=== PATIENT | male | born 2000 | race Caucasian/White ===

== ENCOUNTER 2023-05-04 06:23 | Inpatient (IN) | payer MEDICAID ==
[~2023-05-04] VITALS: Ht 175.3 cm; Wt 88.5 kg
[2023-05-04] MEDS ORDERED: LORazepam 1 MG TABLET PO ONE (09:45)
[2023-05-04 09:54] LABS: COVID AG,FIA SOURCE NASAL SWAB
[2023-05-04 09:54] LABS: ALCOHOL, URINE DRUG SCREEN POSITIVE (NEGATIVE); AMPHET/METH SCREEN,URINE NEGATIVE (NEGATIVE); BARBITURATE SCREEN, URINE NEGATIVE (NEGATIVE); BENZODIAZEPINES SCREEN,URINE NEGATIVE (NEGATIVE); CANNABINOID SCREEN,URINE NEGATIVE (NEGATIVE); COCAINE SCREEN,URINE NEGATIVE (NEGATIVE); METHADONE SCREEN, URINE NEGATIVE (NEGATIVE); OPIATE SCREEN,URINE NEGATIVE (NEGATIVE); PHENCYCLIDINE SCREEN,URINE NEGATIVE (NEGATIVE)
[2023-05-04 09:58] LABS: BASOPHILS % (AUTO) 0.5 % (0.0-2.0); EOSINOPHILS % (AUTO) 2.3 % (1.0-6.0); HEMATOCRIT 47.3 % (41-53); HEMOGLOBIN 16.3 g/dL (13.5-17.5); LYMPHOCYTES # (AUTO) 3.3 K/uL (1.0-4.8); LYMPHOCYTES % (AUTO) 28.9 % (22.0-44.0); MEAN CORPUSCULAR HGB CONC 34.5 G/dL (31.0-37.0); MEAN CORPUSCULAR VOLUME 90 fL (80-100); MONOCYTES # (AUTO) 0.9 K/uL (0.1-1.0); MONOCYTES % (AUTO) 7.6 % (2.0-9.0); NEUTROPHILS # (AUTO) 6.9 K/uL (1.8-7.7); NEUTROPHILS % (AUTO) 60.7 % (40.0-70.0); PLATELET COUNT (AUTO) 240 K/uL (150-450); RED BLOOD CELL COUNT(AUTO) 5.26 MIL/uL (4.50-5.90); RED CELL DISTRIBUTION WIDTH 12.8 % (11.5-14.5); WHITE BLOOD COUNT (AUTO) 11.3 K/uL (4.5-11.0)
[2023-05-04 10:04] LABS: ANION GAP 10 mmol/L (8-16); CALCIUM, TOTAL 8.8 mg/dL (8.8-10.5); CARBON DIOXIDE 25 mmol/L (22-29); CHLORIDE 106 mmol/L (98-107); CREATININE 0.81 mg/dL (0.60-1.30); GLOMERULAR FILTR. RATE CALC > 60 mL/min (>60); GLUCOSE,RANDOM 100 mg/dL (70-110); POTASSIUM 4.3 mmol/L (3.5-5.1); SODIUM SERUM 141 mmol/L (136-145); UREA NITROGEN, BLOOD 10 mg/dL (7-18)
[2023-05-04 10:12] LABS: ALANINE AMINOTRANSFERASE 22 U/L (12-78); ALBUMIN 3.8 g/dL (3.4-5.0); ALKALINE PHOSPHATASE 102 U/L (46-116); ASPARTATE AMINOTRANSFERASE 10 U/L (15-37); BILIRUBIN,TOTAL 0.6 mg/dL (0.1-1.0); TOTAL PROTEIN, SERUM 7.3 g/dL (6.4-8.2)
[2023-05-04 10:13] LABS: ALCOHOL, BLOOD (SERUM) 113 mg/dL (0-10)
[2023-05-04 10:14] LABS: SARS-COV2 (COVID) ANTIGEN,FIA Negative (Negative)
[2023-05-04] MEDS ORDERED: HALOPERIDOL 5 MG TABLET PO PRN (11:00)
[2023-05-04] MEDS ORDERED: LORazepam 2 MG TABLET PO PRN (11:00)
[2023-05-04] MEDS ORDERED: NICOTINE 7 MG/24 HOUR PATCH TD ONE (19:00)
[2023-05-04] MEDS ORDERED: NICOTINE 14 MG/24 HOUR PATCH TD ONE (19:00)
[2023-05-05] MEDS: ZOLPIDEM TARTRATE 10 MG TABLET PO PRN ×2 (00:06→20:34)
[2023-05-05 04:05] VITALS: BP 121/52; PULSE 80; RESP 18; TEMP 98; O2SAT 99
[2023-05-05 08:06] LABS: BAND NEUTROPHILS % (MANUAL) 0 % (0-5)
[2023-05-05 08:16] LABS: HEMATOCRIT 42.2 % (41-53); HEMOGLOBIN 14.7 g/dL (13.5-17.5); MEAN CORPUSCULAR HEMOGLOBIN 31.4 pg (26.0-34.0); MEAN CORPUSCULAR VOLUME 90 fL (80-100); PLATELET COUNT (AUTO) 223 K/uL (150-450); RED BLOOD CELL COUNT(AUTO) 4.69 MIL/uL (4.50-5.90); RED CELL DISTRIBUTION WIDTH 12.9 % (11.5-14.5); WHITE BLOOD COUNT (AUTO) 11.7 K/uL (4.5-11.0)
[2023-05-05 09:11] LABS: ALANINE AMINOTRANSFERASE 19 U/L (12-78); ALBUMIN 3.1 g/dL (3.4-5.0); ALKALINE PHOSPHATASE 89 U/L (46-116); ANION GAP 10 mmol/L (8-16); ASPARTATE AMINOTRANSFERASE 11 U/L (15-37); CALCIUM, TOTAL 8.7 mg/dL (8.8-10.5); CARBON DIOXIDE 25 mmol/L (22-29); CHLORIDE 105 mmol/L (98-107); CHOL/HDL RATIO 2.5 (4.2-7.3); CHOLESTEROL 101 mg/dL (131-200); CREATININE 0.86 mg/dL (0.60-1.30); FREE T4 (FREE THYROXINE) 1.03 ng/dL (0.76-1.46); GLOMERULAR FILTR. RATE CALC > 60 mL/min (>60); GLUCOSE,RANDOM 90 mg/dL (70-110); HDL CHOLESTEROL 41 mg/dL (40-60); LDL CHOL (CALC.) 39 mg/dL (0-130); SODIUM SERUM 140 mmol/L (136-145); THYROID STIMULATING HORMONE 1.44 uIU/mL (0.36-3.74); TRIGLYCERIDES 106 mg/dL (15-150); UREA NITROGEN, BLOOD 15 mg/dL (7-18)
[2023-05-05 09:22] LABS: HEMOGLOBIN A1C 4.9 % (3.8-5.6)
[2023-05-05 09:37] LABS: EOSINOPHILS % (MANUAL) 2 % (1-6); LYMPHOCYTES % (MANUAL) 28 % (22-44); MONOCYTES % (MANUAL) 7 % (2-9); SEGMENTED NEUTROPHILS % 63 % (40-70); TOTAL CELLS COUNTED 100
[2023-05-05 09:38] LABS: RBC MORPHOLOGY COMMENT NORMAL RBC MORPH
[2023-05-05 10:36] VITALS: BP 107/60; PULSE 84; RESP 17; TEMP 98.7; O2SAT 99
[2023-05-05] MEDS ORDERED: NICOTINE 14 MG/24 HOUR PATCH TD SCH (12:15)
[2023-05-05] MEDS: DIVALPROEX SODIUM 500 MG DR TABLET PO SCH (17:04)
[2023-05-05 20:26] VITALS: BP 119/73; PULSE 97; RESP 18; TEMP 98.1; O2SAT 98
[2023-05-05] MEDS ORDERED: OMEPRAZOLE 20 MG CAPSULE PO PRN (22:00)
[2023-05-05] MEDS ORDERED: PETROLATUM,WHITE 28 GM JELLY TP PRN (22:00)
[2023-05-05] MEDS ORDERED: MAGNESIUM HYDROXIDE SUSPENSION 30 ML UDCUP PO PRN (22:00)
[2023-05-05] MEDS ORDERED: IBUPROFEN 600 MG TABLET PO PRN (22:00)
[2023-05-05] MEDS ORDERED: BENZOCAINE/MENTHOL LOZENGE PO PRN (22:00)
[2023-05-05] MEDS ORDERED: MAG HYDROX/AL HYDROX/SIMETH ES 30 ML SUSPENSION UDCUP PO PRN (22:00)
[2023-05-05] MEDS ORDERED: ALBUTEROL SULFATE HFA 90 MCG/PUFF 8 GM INHALER IH PRN (22:00)
[2023-05-05] MEDS ORDERED: ACETAMINOPHEN 325 MG TABLET PO PRN (22:00)
[2023-05-05] MEDS ORDERED: CloNIDine HCL 0.1 MG TABLET PO PRN (22:00)
[2023-05-05] MEDS ORDERED: DOCUSATE SODIUM 100 MG CAPSULE PO PRN (22:00)
[2023-05-05] MEDS ORDERED: ONDANSETRON HCL 4 MG TABLET PO PRN (22:00)
[2023-05-05] MEDS ORDERED: BACITRACIN 28 GM OINTMENT TP PRN (22:00)
[2023-05-05] MEDS ORDERED: LOPERAMIDE HCL 2 MG CAPSULE PO PRN (22:00)
[2023-05-06] MEDS: NICOTINE 21 MG/24 HOUR PATCH TD SCH (08:36)
[2023-05-06] MEDS: DIVALPROEX SODIUM 500 MG DR TABLET PO SCH ×2 (08:36→16:08)
[2023-05-06 08:37] VITALS: BP 120/73; PULSE 88; RESP 17; TEMP 97.8; O2SAT 99
[2023-05-06 20:21] VITALS: BP 129/78; PULSE 79; RESP 18; TEMP 97.8
[2023-05-07 08:22] VITALS: BP 117/65; PULSE 76; RESP 16; TEMP 97.7; O2SAT 97
[2023-05-07] MEDS: NICOTINE 21 MG/24 HOUR PATCH TD SCH (08:53)
[2023-05-07] MEDS: DIVALPROEX SODIUM 500 MG DR TABLET PO SCH (08:53)
[2023-05-07] MEDS ORDERED: DIVA-112 PO (10:00)
== END 2023-05-07 11:15 | disposition home or self-care (01) | DRG 753 ==
LOC: EMS 06:27 → B2S 05-05 00:48
PROVIDERS: ADMIT Psychiatry & Neurology Psychiatry; ATTEND Psychiatry & Neurology Psychiatry
DX: F31.9 Bipolar disorder, unspecified (principal); R45.851 Suicidal ideations; Z20.822 Contact with and (suspected) exposure to COVID-19; F10.129 Alcohol abuse with intoxication, unspecified; F41.9 Anxiety disorder, unspecified; G47.00 Insomnia, unspecified; Z72.0 Tobacco use
CPT/HCPCS: 80053; 80061; 80307; 83036; 84439; 84443; 85007; 85025; 85027; 99285; G0480